=== PATIENT | male | born 1955 | race Caucasian/White ===

== ENCOUNTER 2023-12-16 09:06 | Outpatient (CLI) | payer MEDICARE, SELFPAY | END 2023-12-16 09:07 | disposition home or self-care (01) | LOC: NFLDREF 12-17 12:45 | PROVIDERS: PCP Family Medicine; Referring Provider Family Medicine; Visit Provider Family Medicine | DX: N40.0 Benign prostatic hyperplasia without lower urinary tract symptoms (principal); R97.20 Elevated prostate specific antigen [PSA]; E78.5 Hyperlipidemia, unspecified; R03.0 Elevated blood-pressure reading, without diagnosis of hypertension | CPT/HCPCS: 80053; 80061; 82043; 82570; 84153; 84154 ==

== ENCOUNTER 2024-06-25 10:16 | Outpatient (CLI) | payer MEDICARE, SELFPAY | END 2024-06-25 10:17 | disposition home or self-care (01) | LOC: FRMREF 10:17 | PROVIDERS: Visit Provider Family Medicine | DX: N40.0 Benign prostatic hyperplasia without lower urinary tract symptoms (principal); R53.83 Other fatigue; R97.20 Elevated prostate specific antigen [PSA] | CPT/HCPCS: G0103 ==

== ENCOUNTER 2024-08-03 10:39 | Outpatient (CLI) | payer MEDICARE, SELFPAY ==
[2024-08-03 11:40] VITALS: BP 174/80; PULSE 87
--- NOTE | 2024-08-03 11:51 | W.PM.STED ---
Stress Test Note Date Date of test: 08/03/24 Providers Primary care provider: Princess Pop Stress test physician: Ata Vazquez Stress Test Note Stress test ordered: Exercise Stress Test Indication for test: Dyspnea Stress test medicine: None Results discussion: Pleasant 69-year-old gentleman presents for the above test, as ordered by primary care physician, risks benefits and side effects of this are discussed in detail, patient is accepting of this some like to proceed. Cardiac stress test medical history form is reviewed. Pretest EKG shows normal sinus rhythm, with a ventricular rate of 72, blood pressure 124/82. Following Jurgen protocol patient is exercised for a total time of 9 minutes 2nd, and achieved a metabolic equivalent of 10.5 Mets. Maximum heart rate was 155, with a target predicted of 121%. Patient had some a shortness of breath, but overall did very well, completing the 3rd level. He did not develop any chest pain, discomfort, or any other anginal equivalent symptoms. Review of the tracing did not show any ST wave changes, occasional PVCs were noted Impression: Negative electrographic portion of stress test Follow up suggested: Patient did well with a good exercise level, this test is negative, if further concerns are elicited, recommend stress test with imaging such as a stress echo. Clinical correlation of course with this will be needed.
== END 2024-08-03 11:41 | disposition home or self-care (01) ==
LOC: STRESS 10:40
PROVIDERS: PCP Family Medicine; Visit Provider Family Medicine
DX: R06.02 Shortness of breath (principal); R07.89 Other chest pain
CPT/HCPCS: 93016; 93017

== ENCOUNTER 2024-09-07 19:44 | Outpatient (CLI) | payer MEDICARE, SELFPAY ==
--- NOTE | 2024-09-14 12:26 | W.PM.SLEEP ---
Sleep Study Details Details Interpreting Provider: Adilson Date of Sleep Study: 09/07/24 Sleep Study Details: STUDY TYPE:? Home unattended ? BMI:? 32.1 ORDERING PROVIDER:? Adilson INDICATION:? Concern about sleep apnea ? SLEEP SUMMARY:? Monitor time 434 minutes RESPIRATORY SUMMARY:? AHI 5.1 per CMS guideline, 10.8 per rule 1A Low oxygen 84 3.2% of study oxygen less than 90% Snoring 48.1% PERIODIC LIMB MOVEMENTS OF SLEEP:? Not recorded CARDIAC:? Range 54-102, mean 61.9 beats per minute IMPRESSION:? Mild obstructive sleep apnea RECOMMENDATION: Treatment options would include CPAP or dental appliance.
== END 2024-09-07 19:45 | disposition home or self-care (01) ==
LOC: SLEEP 19:45
PROVIDERS: PCP Family Medicine; Visit Provider Otolaryngology
DX: G47.33 Obstructive sleep apnea (adult) (pediatric) (principal)
CPT/HCPCS: 95806

== ENCOUNTER 2024-10-05 10:56 | Outpatient (CLI) | payer MEDICARE, SELFPAY | END 2024-10-05 10:57 | disposition home or self-care (01) | LOC: FRMREF 10:58 | PROVIDERS: PCP Family Medicine; Visit Provider Family Medicine | DX: R53.83 Other fatigue (principal); E78.5 Hyperlipidemia, unspecified; R73.03 Prediabetes; R07.89 Other chest pain; R06.02 Shortness of breath | CPT/HCPCS: 80053; 82306; 84403; 84443 ==

== ENCOUNTER 2025-05-02 12:24 | Outpatient (CLI) | payer MEDICARE, SELFPAY | END 2025-05-02 12:25 | disposition home or self-care (01) | LOC: NFLDREF 05-03 01:41 | PROVIDERS: PCP Family Medicine; Referring Provider Family Medicine; Visit Provider Physician Assistant | DX: R35.0 Frequency of micturition (principal) | CPT/HCPCS: 87086 ==

== ENCOUNTER 2025-08-31 09:58 | Outpatient (CLI) | payer MEDICARE, SELFPAY | END 2025-08-31 09:59 | disposition home or self-care (01) | LOC: NFLDREF 09-05 04:53 | PROVIDERS: PCP Family Medicine; Referring Provider Family Medicine; Visit Provider Family Medicine | DX: Z00.00 Encounter for general adult medical examination without abnormal findings (principal); E78.5 Hyperlipidemia, unspecified; R97.20 Elevated prostate specific antigen [PSA]; M17.12 Unilateral primary osteoarthritis, left knee; K21.9 Gastro-esophageal reflux disease without esophagitis | CPT/HCPCS: 80053; 80061; 82043; 82570; 84153 ==

== ENCOUNTER 2025-10-11 10:54 | Outpatient (CLI) | payer MEDICARE, SELFPAY ==
[2025-10-11 11:54] VITALS: BP 144/82; PULSE 109; RESP 18
--- NOTE | 2025-10-11 12:08 | P.STN_ITS ---
Stress Test Note Date Date Seen: 10/11/25 Date of test: 10/11/25 Providers Primary care provider: Princess Pop Stress test physician: Anna Marsh Stress Test Note Stress test ordered: Exercise Stress Test Indication for test: Short of breath Stress test medicine: None Results discussion: Resting EKG: Sinus rhythm, 85 beats per minute. Some artifact noted. Resting blood pressure: 110/82 Stress test: Patient had an ordered treadmill exercise stress test ordered, he is consented on this and agrees to proceed. Standard Jurgen protocol was followed. Just after the 1st minute of exercise, did see a 4 beat run of ventricular tachycardia followed by a 2 beat run. Patient was asymptomatic, did not capture this on the EKG printing quick enough but was there and did visualize this. Later he started to have some ventricular beats again, around 6 minutes 29 seconds, noted some PVCs, 1 couplet around 6 minutes 42 seconds had some quadrigeminy and another couplet. At 6 minutes 58 seconds, have an EKG with quadrigeminy. The ventricular disturbances subsided after that. 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 He had no chest discomfort or sense of palpitations through this stress test. He exercised to 7 minutes 41 seconds with an equivalent of 9.1 met. He achieved a maximum heart rate of 151 beats per minute which was 118% of a calculated target heart rate of 127. He had a maximal blood pressure during exercise 164/82. He had a rate pressure product of 24,764. Did review the ventricular ectopy with patient. He does state that he had a stress test last year, completed ZIO patch monitoring. I will review those results, contact him back later today via phone. Impression: Subjectively negative, objectively negative EKG for ischemia but ventricular ectopy with PVCs as well as asymptomatic short runs of ventricular tachycardia noted. Follow up suggested: Patient is discharged in stable condition. Will look at his prior records to formulate further plan for him. Patient ZIO patch was done in August 2024. He had some episodes of sup raventricular tachycardia, notation is noted for conduction with possible aberrancy. They do note ventricle ectopy couplets being rare, less than 1%, no triplets. They do note ventricular bigeminy and trigeminy were present. The longus ventricular bigeminy episode was 4.2 seconds and the longus ventricular trigeminy episode was 7.7 seconds. Patient did notably have an exercise stress test done last July. I did review of the tracings, see no ventricular ectopy, have reviewed that treadmill stress test. He did go to [address] Llyes from [facility], reviewed the stress test, patient's current symptoms and the history that I have here. Patient did see cardiology in November. They had recommended an echo and CT angiography. He would recommend getting those done. He feels repeating the Zio patch would be low yield. He does recommend that this patient go on low-dose beta-romeo. His primary Dr. Pop can order the CT angiogram through [facility]. I can place orders for echo here or see if she will do so. 1:06 p.m.: Did call and leave a detailed message on patient's phone which she instructed me was located do. I am sending in metoprolol XL 25 mg. I will also order the echo. He will need to go through Dr. Pop to have the CT angiogram ordered, this can be done through [facility]. I believe [facility] has a center in [place] where they can do this testing. I have still yet to talk to Dr. Pop but will attempt to do so. Did discuss with Dr. Pop. She will work on getting the CT angiogram order ed through [facility].
== END 2025-10-11 11:56 | disposition home or self-care (01) ==
LOC: STRESS 10:55
PROVIDERS: PCP Family Medicine; Visit Provider Family Medicine
DX: R07.9 Chest pain, unspecified (principal); I47.10 Supraventricular tachycardia, unspecified
CPT/HCPCS: 93016; 93017

== ENCOUNTER 2025-10-26 14:52 | Outpatient (CLI) | payer MEDICARE, SELFPAY | END 2025-10-26 14:53 | disposition home or self-care (01) | LOC: RAD 14:53 | PROVIDERS: PCP Family Medicine; Visit Provider Family Medicine | DX: I47.10 Supraventricular tachycardia, unspecified (principal); Z86.79 Personal history of other diseases of the circulatory system | CPT/HCPCS: 93306 ==